=== PATIENT | male | born 1980 | race Caucasian/White ===

== ENCOUNTER 2022-07-29 19:02 | Emergency (ER) | payer OTHER ==
[~2022-07-29] VITALS: Ht 167.6 cm; Wt 90.7 kg
[2022-07-29 19:02] VITALS: BP_SYST 158
--- NOTE | 2022-07-29 19:05 | NUR ---
Patient triaged and placed in waiting room. VSS and patient appears in no acute distress at this time. Accompanied by SELF, awaiting available bed, and MD notified of need for MSE.
[2022-07-29] MEDS ORDERED: ASPIRIN 81 MG TAB.CHEW PO ONE (19:30)
[2022-07-29] MEDS ORDERED: NITROGLYCERIN 1 INCH (GM) OINT. TP ONE (19:30)
[2022-07-29] MEDS ORDERED: NITROGLYCERIN 0.4 MG TAB.SUBL SL ONE (19:30)
[2022-07-29 19:35] LABS: BASOPHILS # (AUTO) 0.1 K/uL (0.0-0.2); BASOPHILS % (AUTO) 1.4 % (0.0-2.0); EOSINOPHILS # (AUTO) 0.1 K/uL (0.0-0.4); HEMATOCRIT 46.1 % (36-54); HEMOGLOBIN 15.7 g/dL (14.0-18.0); LYMPHOCYTES # (AUTO) 2.3 K/uL (1.0-5.5); LYMPHOCYTES % (AUTO) 28.7 % (20.5-51.5); MEAN CORPUSCULAR HEMOGLOBIN 31 pg (27-31); MEAN CORPUSCULAR HGB CONC 34 % (32-36); MEAN CORPUSCULAR VOLUME 92 fL (79.0-98.0); MONOCYTES # (AUTO) 0.8 K/uL (0.0-1.0); NEUTROPHILS # (AUTO) 4.7 K/uL (1.8-7.7); NEUTROPHILS % (AUTO) 58.9 % (40.0-70.0); PLATELET COUNT (AUTO) 232 K/uL (130-430); RED CELL DISTRIBUTION WIDTH 12.9 % (9.0-15.0)
[2022-07-29] MEDS ORDERED: LORazepam 2 MG/ML VIAL IVP ONE (19:45)
[2022-07-29 19:49] LABS: ANION GAP 14 (5-15); CALCIUM 8.3 mg/dL (8.4-11.0); CHLORIDE 95 mmol/L (98-107); CREATININE 0.66 mg/dL (0.55-1.30); GLUCOSE 115 mg/dL (70-99); UREA NITROGEN, BLOOD 6 mg/dL (8-21)
[2022-07-29 19:56] LABS: ALANINE AMINOTRANSFERASE 191 U/L (12-78); ALBUMIN 3.9 g/dL (3.4-4.8); ASPARTATE AMINOTRANSFERASE 127 U/L (10-37); TOTAL BILIRUBIN 0.6 mg/dL (0.0-1.0)
[2022-07-29 19:57] LABS: GFR AFRICAN AMERICAN 169 mL/min (>90)
--- NOTE | 2022-07-29 20:00 | NUR ---
Pt presents to the ER from event. AAOx4 pt complains of chest pain. Describes intermittant sharp pain to chest area. Pt denies dizziness, head ache, pt denies NV. Pt states has not been compliant with Amlodipine medication for greater than a year. Pt states history of Hypertension.
[2022-07-29] MEDS ORDERED: KETOROLAC TROMETHAMINE 30 MG VIAL IVP ONE (20:30)
--- NOTE | 2022-07-29 21:01 | NUR ---
RECEIVED REPORT ON PATIENT FROM ERIK CLARK, ASSUMED CARE, AND STARTED ASSESSMENT. MEDICATED PATIENT WITH TORADOL, 30 MG IVP FOR PAIN PER MD ORDERS. WILL CONTINUE TO MONITOR AND ASSESS FOR SAFETY AND COMFORT.
[2022-07-29] MEDS ORDERED: IBUP-1971 PO (22:04)
[2022-07-29 22:22] VITALS: BP_SYST 126
--- NOTE | 2022-07-29 22:25 | NUR ---
Pt DC per MDs order DC instructions given to pt Pt verbalized understandings AOX4 VSS Able to make needs known Pt exited ED in stable gait
== END 2022-07-29 22:21 | disposition home or self-care (01) ==
LOC: SED 19:02
DX: R07.89 Other chest pain (principal); M94.0 Chondrocostal junction syndrome [Tietze]; Z79.899 Other long term (current) drug therapy
CPT/HCPCS: 99284; 96374; 96375; 80053; 83880; 85025; 85379; 84484; 36415; J1885; J2060